=== PATIENT | male | born 1945 | race Caucasian/White ===

== ENCOUNTER → 2024-01-11 09:00 | Outpatient (REF) | payer OTHER, SELFPAY | LOC: DHSLP 09:00 | PROVIDERS: ATTENDING PHYSICIAN Internal Medicine | DX: G47.33 Obstructive sleep apnea (adult) (pediatric) (principal) | CPT/HCPCS: 95800 ==

== ENCOUNTER 2024-09-19 20:33 | Observation (INO) | payer OTHER, SELFPAY ==
[2024-09-19] VITALS (7 sets, daily range): BP systolic 127–162; BP diastolic 62–79; BMI 29.6
[2024-09-19 16:10] LABS: % Basophils 0.4 % (0-2); % Eosinophils 1.3 % (0-6); % Immature Granulocytes 0.3 % (0-0.5); % Lymphocytes 25.2 % (20.5-51.1); % Monocytes 6.7 % (1.7-9.3); % Neutrophils 66.1 % (42.2-75.2); Absolute Eosinophils 0.1 10^3/uL (0-0.7); Absolute Lymphocytes 1.8 10^3/uL (1.2-3.4); Absolute Monocytes 0.5 10^3/uL (0.1-0.6); Absolute Neutrophils 4.7 10^3/uL (1.4-6.5); Hematocrit 45.6 % (39.0-52.0); Hemoglobin 15.6 g/dL (13.0-18.0); Mean Corp Hgb Conc. 34.2 g/dL (33.0-37.0); Mean Corpuscular Hgb 31.7 pg (27.0-31.0); Mean Corpuscular Volume 92.7 fL (80.0-94.0); Mean Platelet Volume 9.5 fL (7.4-10.4); Nucleated Red Blood Cells % 0 % (-); Platelet Count 161 10^3/uL (130-400); Red Blood Cell Count 4.92 10^6/uL (4.70-6.10); Red Cell Dist. Width 12.5 % (11.5-14.5); White Blood Cell Count 7.2 10^3/uL (4.8-10.8)
[2024-09-19 16:28] LABS: ALT (SGPT) 23 U/L (0-50); AST (SGOT) 33 U/L (17-59); Alkaline Phosphatase 93 U/L (38-126); Blood Urea Nitrogen 25 mg/dl (9-20); Calcium 9.3 mg/dl (8.4-10.2); Carbon Dioxide 27 mmol/L (22-30); Chloride 107 mmol/L (98-107); Glucose 101 mg/dl (70-99); Potassium 5.1 mmol/L (3.5-5.1); Sodium 141 mmol/L (135-145); Total Bilirubin 0.9 mg/dl (0.2-1.3); Total Protein 6.9 g/dl (6.3-8.2); eGFR > 60.00
--- NOTE | 2024-09-19 18:58 | ED.GENMED ---
History of Present Illness
General
Chief Complaint: Change in Mental Status
Source: patient and spouse
Exam Limitations: none
Time Seen by Provider: 09/19/24 18:37
History of Present Illness
History of Present Illness:
See MDM
Past History
Past History
ED Past Medical History: Hypercholesterolemia
ED Past Surgical History: Cholecystectomy
Social History
Tobacco: Non-smoker
Alcohol: None
Phy Exam
Physical Exam
Physical Exam:
See MDM
Scores
NIH Stroke Score
Level of Consciousness: 0 - Alert
LOC Questions: 0-Answers both correctly
LOC Commands: 0-Performs both correctly
Best Horizontal Gaze: 0-Normal
Visual Franco: 0=Normal, no visual loss
Facial Palsy: 0=Normal, symmetrical
Motor - Right Arm: 0=No drift 10 seconds
Motor - Left Arm: 0=No drift 10 seconds
Motor - Right Le-No drift 5 seconds
Motor - Left Le-No drift 5 seconds
Limb Ataxia: 0-Absent
Sensation: 0-Normal
Best Language: 0-No aphasia
Dysarthria: 0-Normal
Extinction and Inattention: 0-No abnormality
Total Score:: 0
Course
Orders/Labs/Results
Orders:
Orders
09/19/24 15:[address] [CT Head W/o Iv Contrast] Urgent
Comment:
Reason For Exam: memory issues
09/19/24 16:04
Complete Blood Count/With Diff Urgent
Comprehensive Metabolic Panel Urgent
09/19/24 18:58
Aspirin Chewable [Low Strength Aspirin] 81 mg PO NOW STA
Abnormal Lab Results
09/19/24
16:04
MCH 31.7 H pg
(27.0-31.0)
BUN 25 H mg/dl
(9-20)
Glucose 101 H mg/dl
(70-99)
09/19/24 16:04
09/19/24 16:04
Vital Signs
Initial and Last Documented VS:
Initial Vital Signs
Temp Pulse Resp BP Pulse Ox
97.7 F 67 16 127/78 98
09/19/24 15:52 09/19/24 15:52 09/19/24 15:52 09/19/24 15:52 09/19/24 15:52
Last Documented Vital Signs
Temp Pulse Resp BP Pulse Ox
97.7 F 67 16 127/78 98
09/19/24 15:52 09/19/24 15:52 09/19/24 15:52 09/19/24 15:52 09/19/24 15:52
MDM/Problems Addressed
Differential Diagnosis Includes:
HPI and MDM Narrative:
79-year-old male presenting for evaluation of confusion. His noted that he was confused soon after breakfast. Patient states the last thing he remembers was eating breakfast. He was supposed to go to the store to get ant traps. When his
asked him about the ant traps, he was confused about what she was talking about. She brought him in for evaluation. On exam, he is well-appearing and nontoxic. It appears that there are significant life stressors at home, 1 of which includes
moving out of their home into a nursing facility.
Given that his NIH stroke scale is 0, we discussed the likelihood of transient global amnesia. He is well-appearing and nontoxic. He has no focal deficits. Case discussed with neurology. Will start baby aspirin and admit
Physical exam
General: Well appearing and non-toxic
HEENT: protecting airway
Neck: appears supple
CV: No evidence of cyanosis. Regular rate and rhythm
Resp: No accessory muscle use
Abd: Non-distended
Extremities: No deformities
Neuro: alert. NIH stroke scale 0
Psych: Normal affect
Skin: Intact
Problems Addressed including Acute and Chronic Conditions affecting care:
1. Transient global amnesia
Acuity: acute
Prognosis: stable
Details: Will start aspirin and admit
Differential Diagnosis (but not limited to): Transient global amnesia, TIA
Testing considered: Urinalysis but he denies urinary symptoms
Drug therapy (if applicable): OTC meds, please see d/c instruction regarding Rx drugs
Amount and/or Complexity of Data Reviewed
Clinical info obtained from: Patient
External data reviewed: N/A
Labs I independently reviewed (but not limited to): White blood cell count normal at
Radiology: The CT scan was personally and independently reviewed. In addition, official CT report reviewed.
Pulse Ox: not hypoxic
EKG independently reviewed: N/A
Emd Teacher: N/A
Critical Care: N/A
Risk of Complication:
Social Determinants of health: Good social support
Discussed with other providers: Neurology, hospitalist
Escalation of Care includes Admit/Obs: Given the concern for transient global amnesia, will start aspirin and admit
Occasional wrong word or 'sound a like' substitutions may have occurred due to the inherent limitations of voice recognition software. Read the chart carefully and recognize, using context, where substitutions have occurred.
*Critical Care Note
Total Time (30-74mins, 75-104mins- exclusive of procedures): Not Applicable
ED Attending Note
-
Portions of this chart may have been created with voice recognition software.� Occasional wrong word or��sound alike� substitutions may have occurred due to the inherent limitations of voice recognition software.
Discharge Plan
Departure
Patient Disposition: Admit
Date of Disposition: 09/19/24
Time of Disposition: 19:19
Admit to: Med/Surg
Presentation/result/management discussed w/ accepting MD/DO: Hospitalist
Discharge Problem:
Amnesia, global, transient
Prescriptions:
No Action
simvastatin 10 MG tablet
10 mg PO DAILY
hydrocodone-acetaminophen [[place]] 1 EACH tablet
1 ea PO Q6HPRN PRN (Reason: pain) Qty: 40 0RF
Rx Instructions:
Take 1 tablet four times a day, every 6 hours for pain
lorazepam 1 MG tablet
1 mg PO TIDPRN PRN (Reason: pain/spasms) Qty: 40 0RF
Interventions
Interventions:
*Risk Screen - Suicide Last Done: 09/19/24 15:56
*General Assessment Last Done: 09/19/24 18:35
*Neglect/Abuse Screening Last Done: 09/19/24 15:56
*ED- Fall Risk Assessment Last Done: 09/19/24 18:35
*ED COVID-19 Vaccine History Last Done: 09/19/24 18:35
ED- Neurological Assessment Last Done: 09/19/24 18:35
ED Swallowing Screen Last Done: 09/19/24 19:05
Discharge Date and Time
Print Language: J[place]
[2024-09-19] MEDS: LOW STRENGTH ASPIRIN 81 MG PO (19:13)
--- NOTE | 2024-09-19 19:59 | CON.NEURO ---
Consultation
Order
Date of Consultation: 09/19/24
Requesting Provider:
Reason for Consult: TGA
Neurology Consultation Note.
HPI: This is an 79-year-old man who presented to [facility] on 09/19/2024 with transient memory dysfunction.
Mr. Ocampo reports no recollection of events from approximately 1:30 or 2:00 PM until he found himself in a car en route to the hospital. The patient's last clear memory is from 9:00 AM when he performed his morning routine. He has since regained
memory of his morning activities but still lacks recall for the specific time frame in question. The patient denies any headaches or unusual symptoms in the morning prior to the event.
Mr. Ocampo reports ongoing stress related to moving to a [facility] community and clearing out his house. He mentions having a rash and gastrointestinal issues for the past 2-3 days. The patient's notes that he attended a class at [employer] yesterday at 1:00 PM, which he drove to but does not remember as well. She also reports that he had his cell phone fixed and took items to a thrift store this morning, events which he cannot recall.
ER VS: 127/78, 67, afebrile
EKG: Pending
PDMP:none
Labs: Glucose�101, normal sodium, calcium, WBCs, creatinine
CT head wo contrast�mild atrophy.
PMH: HTN, DLP, hypothyroidism, IBS. LS radiculopathy, vitamin D deficiency
PSH: Lumbar laminectomy, bilateral rotator cuff repair, bilateral cataract surgery, L TKA
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
All: Penicillin
ROS: Constitutional: Negative. Negative for chills, fever and unexpected weight change.
HENT: Negative for ear pain, hearing loss, tinnitus and trouble swallowing.
Eyes: Negative. Negative for photophobia, pain and visual disturbance.
Respiratory: Negative for cough, choking and shortness of breath.
Cardiovascular: Negative for chest pain, palpitations and leg swelling.
Gastrointestinal: Negative for abdominal pain and vomiting.
Endocrine: Negative. Negative for cold intolerance.
Genitourinary: Positive for diarrhea
Musculoskeletal: Negative for back pain, gait problem, neck pain and neck stiffness.
Skin: Positive for rash
Allergic/Immunologic: Negative. Negative for immunocompromised state.
Neurological: Positive for transient memory loss
Psychiatric/Behavioral: Negative for behavioral problems, confusion and hallucinations.
General: Well developed. In no acute distress.
Cardio: Regular rate and rhythm without murmur. Extremities are without cyanosis or edema.
Neuro:
Mental Status: Alert, oriented to person, place, and date. Normal attention and recall. Good fund of knowledge. Follows complex requests across the midline. Comprehension, naming, and repetition intact. Immediate and delayed recall 3/3.
Cranial Nerves: Pupils are equally round, r surgical. EOMs full. Visual aranda full to confrontation. No ptosis. No nystagmus. V1-V3 intact to light touch and pinprick bilaterally, symmetric. Face symmetric. Mildly impaired hearing AU. The
palate elevated well. SCMs and traps 5/5. Tongue midline. No dysarthria.
Motor: Normal bulk and tone. No pronator or arm drift. Strength 5/5 throughout. No clonus.
Reflexes: 1+ throughout the upper extremities and trace knees. Plantar responses flexor bilaterally. Negative press bilaterally
Sensory: Absent vibration at the left toe and reduced at the left ankle
Coordination: No dysmetria or tremor.
Gait: deferred
Assessment and Plan:
I. Probable transient global amnesia
II. History of L2/L3 central spinal canal stenosis/LS radiculopathy, status post remote laminectomy
III. DLP
-Continue Telemetry monitoring
-ASA 81 mg QD
-Please obtain brain MRI without pérez
-Routine EEG
-Please check vitamin B12, TFTs, urine tox
-DVT prophylaxis.
I personally reviewed all radiology and labs along with past medical records pertinent to current medical problems. Total time spent in patient care is 60 minutes.
Thank you for allowing us to participate in the care of this patient. We will continue to follow. Please do not hesitate to contact us with any questions or concerns.
Subjective/Objective
Subjective Data
Date of Service: September 19, 2024
Objective Data
Vital Signs
Temp Pulse Resp BP Pulse Ox
36.5 C 67 16 127/78 98
09/19/24 15:52 09/19/24 15:52 09/19/24 15:52 09/19/24 15:52 09/19/24 15:52
Lab Results
09/19/24 16:04
09/19/24 16:04
Sodium 141 mmol/L (135-145) 09/19/24 16:04
Potassium 5.1 mmol/L (3.5-5.1) 09/19/24 16:04
BUN 25 mg/dl (9-20) H 09/19/24 16:04
Glucose 101 mg/dl (70-99) H 09/19/24 16:04
Calcium 9.3 mg/dl (8.4-10.2) 09/19/24 16:04
Patient Allergies
Cephalosporins Allergy (Verified 06/06/16 08:18)
Pharmacy to Review
penicillin V Allergy (Verified 06/06/16 08:18)
Hives,rash,hot at site
Penicillins Allergy (Verified 06/06/16 08:18)
Hives,rash,hot at site
Medications
-
Home Medications
�Medication �Instructions �Recorded
atorvastatin 20 mg tablet 20 mg PO QPM 09/19/24
cholecalciferol (vitamin D3) 25 25 mcg PO DAILY 09/19/24
mcg (1,000 unit) tablet (Vitamin
D3)
ketoconazole 2 % topical cream 1 applic topical BID right toe 09/19/24
fungus
levothyroxine 50 mcg tablet 50 mcg PO DAILY 09/19/24
loperamide 2 mg capsule (Imodium 2 mg PO Q6HPRN PRN diarrhea 09/19/24
A-D)
Vital Signs and Labs
-
Vital Signs and Labs:
Vital Signs
Temp Pulse Resp BP Pulse Ox
36.5 C 67 16 127/78 98
09/19/24 15:52 09/19/24 15:52 09/19/24 15:52 09/19/24 15:52 09/19/24 15:52
Lab Results
09/19/24 16:04
09/19/24 16:04
Sodium 141 mmol/L (135-145) 09/19/24 16:04
Potassium 5.1 mmol/L (3.5-5.1) 09/19/24 16:04
BUN 25 mg/dl (9-20) H 09/19/24 16:04
Glucose 101 mg/dl (70-99) H 09/19/24 16:04
Calcium 9.3 mg/dl (8.4-10.2) 09/19/24 16:04
Home Medications
-
Home Medications
atorvastatin 20 mg tablet 20 mg PO QPM 09/19/24
cholecalciferol (vitamin D3) 25 mcg (1,000 unit) tablet (Vitamin D3) 25 mcg PO DAILY 09/19/24
ketoconazole 2 % topical cream 1 applic topical BID right toe fungus 09/19/24
levothyroxine 50 mcg tablet 50 mcg PO DAILY 09/19/24
loperamide 2 mg capsule (Imodium A-D) 2 mg PO Q6HPRN PRN diarrhea 09/19/24
--- NOTE | 2024-09-19 20:09 | HPS.HSE ---
Family Physician
-
Family Physician: Ethan Christianson
Chief Complaint
-
Confusion and loss of memory
History of Present Illness
This is a 79-year-old with past medical history significant for hypothyroid, hyperlipidemia, ZEKE on CPAP who presents to the emergency department after developing an acute episode of confusion and memory loss this afternoon at around 1:30 PM.
Patient reports that arousing usual state of health With Usual Activities. Spouse Reported That at around 1:30 PM till 4 PM Patient Appeared Confused. Patient Himself Does Not Remember This Episode. At around 4 PM He Started Remembering What He
Had for Breakfast and Have a Carried down until around 1:30 PM. At This Time He Does Not Remember What Has Occurred between 1:30 PM and 4 PM. He States That since 4 PM He Has Had No Acute Memory Issues and Remembers Everything. He Denies Any Loss
of Prior Memory. Patient Currently Denies Any Weakness, Numbness Tingling. He Denies Any Speech Difficulty. Spouse Did Not See Any Outward Abnormalities Such As Gait Abnormality Dysarthria or Facial Droop. Patient Denies Any Prior History of
Stroke or TIA. Denies Any Prior History of CAD. He Has No Known History of Atrial Fibrillation. He Is Not Currently on Any Antihypertensives.
In the emergency department he was afebrile, blood pressure was normal at 127/78 with a pulse of 67 and oxygen saturation of 98% on room air. CBC was completely normal. Electrolytes BUN/creatinine were also in the normal range creatinine of 1.2
which appears to be his baseline. Telemetry with normal sinus rhythm as well as occasional bradycardia to 57. CT of the head shows no acute interval changes.
Medical History
Past Medical History
Past Medical History: Reports Hypercholesterolemia and Hypothyroidism
Additional Past Medical History:
Obstructive sleep apnea on CPAP
Past Surgical History: Reports Cholecystectomy, Orthopedic (Left total knee arthroplasty, lumbar laminectomy 2015) and Urological (Prostatectomy 2001)
Social History
Tobacco: Non-smoker
Alcohol: None
Drug: None
Personal:
Living: With Family
Employment: Retired
Family History
Family History: Not pertinent
Allergies / Home Medications
Allergies reflects when Allergies were last updated in [employer].
Home Medications with original date entered in [facility]
Allergy/Medication List:
Allergies
Allergy/AdvReac Type Severity Reaction Status Date / Time
Cephalosporins Allergy Pharmacy Verified 06/06/16 08:18
to Review
penicillin V Allergy Hives,rash,hot Verified 06/06/16 08:18
at site
Penicillins Allergy Hives,rash,hot Verified 06/06/16 08:18
at site
Home Medications
atorvastatin 20 mg tablet 20 mg PO QPM 09/19/24
cholecalciferol (vitamin D3) 25 mcg (1,000 unit) tablet (Vitamin D3) 25 mcg PO DAILY 09/19/24
ketoconazole 2 % topical cream 1 applic topical BID right toe fungus 09/19/24
levothyroxine 50 mcg tablet 50 mcg PO DAILY 09/19/24
loperamide 2 mg capsule (Imodium A-D) 2 mg PO Q6HPRN PRN diarrhea 09/19/24
Review of Systems
-
History Source: Patient
Constitutional: Reports No Symptoms
EENT: Reports No Symptoms
Respiratory: Reports No Symptoms
Cardiac: Reports No Symptoms
Abdomen/GI: Reports No Symptoms
: Reports No Symptoms
Musculoskeletal: Reports No Symptoms
Skin: Reports No Symptoms
Neurological: Reports Other (confusion, loss of memory)
Endocrine: Reports No Symptoms
Hematologic/Lymphatic: Reports No Symptoms
Psych: Reports No Symptoms
Physical Exam
Vital Signs
Vital Signs
Temp Pulse Resp BP Pulse Ox
97.7 F 67 16 127/78 98
09/19/24 15:52 09/19/24 15:52 09/19/24 15:52 09/19/24 15:52 09/19/24 15:52
Physical Exam
General: Well Developed, Well Nourished, No Apparent Distress, Comfortable and Conversant
HEENT: NormoCephalic, Anicteric, Moist mucous membranes, Atraumatic and PERRLA
Respiratory: Clear
Cardiac: S1/S2 and Regular Rhythm
Breast: Deferred by me
GI: Soft, Non Tender, Non Distended and Normal Bowel Sounds
Rectal: Deferred by Provider
Genito-urinary: Deferred by me
Musculoskeletal: No Clubbing, No Cyanosis and No Edema
Skin: Warm
Neuro: AO x 3, No Motor Deficits, Cranial Nerves Intact and No Sensory Deficits; No Facial Droop or Tremors
Hematologic/Lymphatic: No Lymphadenopathy
Psych: Calm
Laboratory Results
-
09/19/24 16:04
09/19/24 16:04
Laboratory Results
Total Bilirubin 0.9 mg/dl (0.2-1.3) 09/19/24 16:04
AST 33 U/L (17-59) 09/19/24 16:04
ALT 23 U/L (0-50) 09/19/24 16:04
Alkaline Phosphatase 93 U/L (38-126) 09/19/24 16:04
Data Reviewed
-
CT Scan: Report Reviewed by me
Lab Data: Labs Reviewed by me
Old Records: Reviewed
Impression/Plan
-
IMPRESSION:
Patient is a 79-year-old with past medical history significant for hyperlipidemia and obstructive sleep apnea as well as hypothyroid who presents to the emergency department with episode of confusion that lasted for about 24 hours and is now
completely resolved. It associated with loss of memory involved that intervening 2 hours but no other deficits. He is alert and oriented currently in normal mental status. He is hemodynamically stable. Labs were unremarkable. CT of the head
shows no acute abnormality.
PLAN:
Mental status change�limited anterograde memory deficits that is now resolved is likely the etiology of his brief confusional state. C/W TGA. His labs are all normal. CT of the head is normal.
- admit to telemetry observation
- mri brain in am
- neurochecks q 6 hours
- ecg
- check lipid panel, a1c and esr
- check tsh, b12 and folate
- check u/a
- continue statin for now
- started asa 81 daily
- continue levothyroxine
- CPAP HS
DVT PPX - lovenox sq
code status - Full Code
[2024-09-19 22:04] LABS: TSH Reflex To Free T4 2.15 uIU/ml (0.47-4.68)
--- NOTE | 2024-09-19 22:15 | PTCARENOTE ---
Patient admitted Telemetry level of care with no IV access placed in ED. Upon assessment, patient refused new IV insertion at this time. RN made aware.
[2024-09-19 22:22] LABS: Vitamin B12 275 pg/ml (239-931)
[2024-09-20 00:59] VITALS: PULSE 55
[2024-09-20 02:22] LABS: Amphetamines Negative (Negative); Barbiturates Negative (Negative); Benzodiazepines Negative (Negative); Buprenorphine Negative (Negative); Cocaine Negative (Negative); Marijuana Negative (Negative); Methadone Negative (Negative); Methamphetamines Negative (Negative); Opiates Negative (Negative); Phencyclidine Negative (Negative); Tricyclic Antidepressants Negative (Negative)
[2024-09-20 03:58] VITALS: PULSE 50
[2024-09-20] MEDS: SYNTHROID 50 MCG PO (06:13)
[2024-09-20 06:36] LABS: Hematocrit 42.8 % (39.0-52.0); Hemoglobin 14.7 g/dL (13.0-18.0); Mean Corp Hgb Conc. 34.3 g/dL (33.0-37.0); Mean Corpuscular Hgb 31.6 pg (27.0-31.0); Mean Platelet Volume 9.7 fL (7.4-10.4); Platelet Count 157 10^3/uL (130-400); Red Blood Cell Count 4.65 10^6/uL (4.70-6.10); Red Cell Dist. Width 12.7 % (11.5-14.5); White Blood Cell Count 6.1 10^3/uL (4.8-10.8)
[2024-09-20 07:08] LABS: Blood Urea Nitrogen 22 mg/dl (9-20); Calcium 8.8 mg/dl (8.4-10.2); Carbon Dioxide 26 mmol/L (22-30); Chloride 106 mmol/L (98-107); Estimated Creatinine Clearance 51 ml/min; Glucose 81 mg/dl (70-99); HDL Cholesterol 48 mg/dl; LDL Cholesterol, Calculated 64 mg/dl; Potassium 4.2 mmol/L (3.5-5.1); Sodium 141 mmol/L (135-145); Total Cholesterol 133 mg/dl (50-199); Triglyceride 106 mg/dl (10-149); Very Low Density Lipoprotein 21 mg/dl (0-30); eGFR > 60.00
[2024-09-20 07:30] VITALS: BP 120/66
[2024-09-20] MEDS: LOW STRENGTH ASPIRIN 81 MG PO (08:14)
[2024-09-20] MEDS: VITAMIN D3 (cholecalciferol) 25 MCG PO (08:14)
[2024-09-20 09:48] LABS: Glycohemoglobin (HgbA1c) 5.4 % (4.0-5.6)
[2024-09-20 11:00] VITALS: BP 148/68
--- NOTE | 2024-09-20 11:10 | W.PN.NEURO.1 ---
Today's Communication / Plan
-
.
Subjective/Objective
Subjective Data
Date of Service: September 20, 2024
Neurology follow-up note
Mr. Ocampo reports no complaints. No recurrent episodes of memory loss.
The patient has been normotensive and afebrile.
Brain MRI showed no acute abnormalities.
Vitamin B12�275, TSH�normal, U-Tox�negative.
PMH: HTN, DLP, hypothyroidism, IBS. LS radiculopathy, vitamin D deficiency
PSH: Lumbar laminectomy, bilateral rotator cuff repair, bilateral cataract surgery, L TKA
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
All: Penicillin
ROS: Constitutional: Negative. Negative for chills, fever and unexpected weight change.
HENT: Negative for ear pain, hearing loss, tinnitus and trouble swallowing.
Eyes: Negative. Negative for photophobia, pain and visual disturbance.
Respiratory: Negative for cough, choking and shortness of breath.
Cardiovascular: Negative for chest pain, palpitations and leg swelling.
Gastrointestinal: Negative for abdominal pain and vomiting.
Endocrine: Negative. Negative for cold intolerance.
Genitourinary: Positive for diarrhea
Musculoskeletal: Negative for back pain, gait problem, neck pain and neck stiffness.
Skin: Positive for rash
Allergic/Immunologic: Negative. Negative for immunocompromised state.
Neurological: Positive for transient memory loss
Psychiatric/Behavioral: Negative for behavioral problems, confusion and hallucinations.
General: Well developed. In no acute distress.
Cardio: Regular rate and rhythm without murmur. Extremities are without cyanosis or edema.
Neuro:
Mental Status: Alert, oriented to person, place, and date. Normal attention and recall. Good fund of knowledge. Follows complex requests across the midline. Comprehension, naming, and repetition intact. Immediate and delayed recall 3/3.
Cranial Nerves: Pupils are equally round, r surgical. EOMs full. Visual aranda full to confrontation. No ptosis. No nystagmus. V1-V3 intact to light touch and pinprick bilaterally, symmetric. Face symmetric. Mildly impaired hearing AU. The
palate elevated well. SCMs and traps 5/5. Tongue midline. No dysarthria.
Motor: Normal bulk and tone. No pronator or arm drift. Strength 5/5 throughout. No clonus.
Reflexes: 1+ throughout the upper extremities and trace knees. Plantar responses flexor bilaterally. Negative press bilaterally
Sensory: Absent vibration at the left toe and reduced at the left ankle
Coordination: No dysmetria or tremor.
Gait: deferred
Assessment and Plan:
I. Transient global amnesia. TGA is an uncommon, benign, self-limited, and relatively selective disturbance of anterograde amnesia that occurs in middle-aged and older subjects. While some studies find that migraine and cerebrovascular risk factors
are associated with TGA, the pathogenesis of this disorder remains uncertain. The prognosis after idiopathic TGA is good, with a low risk of recurrence or other subsequent neurologic events. No treatment or driving restriction is required.
II. History of L2/L3 central spinal canal stenosis/LS radiculopathy, status post remote laminectomy.
III. DLP
-Continue Telemetry monitoring
-Routine EEG (can be done as outpatient)
-Outpatient neurology follow-up
I personally reviewed all radiology and labs along with past medical records pertinent to current medical problems. Total time spent in patient care is 35 minutes.
Thank you for allowing us to participate in the care of this patient. Please do not hesitate to contact us with any questions or concerns.
Objective Data
Vital Signs
Temp Pulse Resp BP Pulse Ox
36.7 C 57 20 120/66 97
09/20/24 07:30 09/20/24 07:30 09/20/24 07:30 09/20/24 07:30 09/20/24 07:30
Lab Results
09/20/24 05:26
09/20/24 05:26
Sodium 141 mmol/L (135-145) 09/20/24 05:26
Potassium 4.2 mmol/L (3.5-5.1) 09/20/24 05:26
BUN 22 mg/dl (9-20) H 09/20/24 05:26
Glucose 81 mg/dl (70-99) 09/20/24 05:26
Calcium 8.8 mg/dl (8.4-10.2) 09/20/24 05:26
LDL Cholesterol, Calc 64 mg/dl 09/20/24 05:26
Vitamin B12 275 pg/ml (239-931) 09/19/24 16:04
Ur Buprenorphine Negative (Negative) 09/20/24 01:30
Patient Allergies
Cephalosporins Allergy (Verified 06/06/16 08:18)
Pharmacy to Review
penicillin V Allergy (Verified 06/06/16 08:18)
Hives,rash,hot at site
Penicillins Allergy (Verified 06/06/16 08:18)
Hives,rash,hot at site
Vital Signs and Labs
-
Vital Signs and Labs:
Vital Signs
Temp Pulse Resp BP Pulse Ox
36.7 C 57 20 120/66 97
09/20/24 07:30 09/20/24 07:30 09/20/24 07:30 09/20/24 07:30 09/20/24 07:30
Lab Results
09/20/24 05:26
09/20/24 05:26
Sodium 141 mmol/L (135-145) 09/20/24 05:26
Potassium 4.2 mmol/L (3.5-5.1) 09/20/24 05:26
BUN 22 mg/dl (9-20) H 09/20/24 05:26
Glucose 81 mg/dl (70-99) 09/20/24 05:26
Calcium 8.8 mg/dl (8.4-10.2) 09/20/24 05:26
LDL Cholesterol, Calc 64 mg/dl 09/20/24 05:26
Vitamin B12 275 pg/ml (298-170) 09/19/24 16:04
Ur Buprenorphine Negative (Negative) 09/20/24 01:30
Medications
-
Medications:
Generic Name Dose Route Start Last Admin
Trade Name Freq PRN Reason Stop Dose Admin
Acetaminophen 650 mg 09/19/24 21:42
Acetaminophen 325 Mg Tablet PO 10/17/24 21:41
Q4HPRN PRN
mild pain/WILSON/temp> 100.4F
Aspirin 81 mg 09/20/24 08:00 09/20/24 08:14
Aspirin 81 Mg Chewable Tablet PO 10/18/24 07:59 81 mg
DAILY JARVIS Administration
Atorvastatin Calcium 20 mg 09/20/24 18:00
Atorvastatin (Lipitor) 20 Mg Tablet PO 10/18/24 17:59
QPM JARVIS
Bisacodyl 10 mg 09/19/24 21:42
Bisacodyl 10 Mg Rectal Suppository RECTAL 10/17/24 21:41
[id number] PRN
constipation
Cholecalciferol 25 mcg 09/20/24 08:00 09/20/24 08:14
Cholecalciferol (Vitamin D3) 25 Mcg Tablet (1,000 Units) PO 10/18/24 07:59 25 mcg
DAILY JARVIS Administration
Enoxaparin Sodium 40 mg 09/20/24 18:00
Enoxaparin Sodium 40 Mg/0.4 Ml Syringe SC 10/18/24 17:59
QPM JARVIS
Levothyroxine Sodium 50 mcg 09/20/24 06:00 09/20/24 06:13
Levothyroxine 50 Mcg Tablet PO 10/18/24 05:59 50 mcg
DAILY@0600 JARVIS Administration
Loperamide HCl 2 mg 09/19/24 21:42
Loperamide 2 Mg Capsule PO 10/17/24 21:41
Q6HPRN PRN
diarrhea
Polyethylene Glycol 17 grams 09/19/24 21:42
Polyethylene Glycol Powder 17 Grams Packet PO 10/17/24 21:41
DAILYPRN PRN
constipation
Senna/Docusate Sodium 1 tablet 09/19/24 21:42
Docusate W/Senna (Bianca-Colace) Tablet PO 10/17/24 21:41
BIDPRN PRN
constipation
Sodium Chloride 0 flush 09/19/24 22:00
Sodium Chloride 0.9% (Flush) Syringe IV 10/17/24 21:59
PER PROTOCOL JARVIS
Home Medications
-
Home Medications
atorvastatin 20 mg tablet 20 mg PO QPM 09/19/24
cholecalciferol (vitamin D3) 25 mcg (1,000 unit) tablet (Vitamin D3) 25 mcg PO DAILY 09/19/24
ketoconazole 2 % topical cream 1 applic topical BID right toe fungus 09/19/24
levothyroxine 50 mcg tablet 50 mcg PO DAILY 09/19/24
loperamide 2 mg capsule (Imodium A-D) 2 mg PO Q6HPRN PRN diarrhea 09/19/24
--- NOTE | 2024-09-20 11:21 | W.PN.HOSP.TC ---
Addendum entered and electronically signed by Bradly Mays MD 09/20/24 14:03:
MRI brain unremarkable. Case discussed with Dr. Perez and the pt is medically cleared for d/c.
Total time spent on d/c = 31 min. This included today's physical exam, progress note, review of laboratory and diagnostic data, preparation of discharge documents and prescriptions, and discussions about the pt's hospital course and discharge plan
with the patient and other medical resident involved in the patient's care.
Original Note:
Today's Communication/Plan
-
see bold
Assessment / Plan
Assessment / Plan
79-year-old with past medical history significant for hyperlipidemia and obstructive sleep apnea as well as hypothyroid who presents to the emergency department with episode of confusion that lasted for about 24 hours and is now completely resolved.
It associated with loss of memory involved that intervening 2 hours but no other deficits. He is alert and oriented currently in normal mental status. He is hemodynamically stable. Labs were unremarkable. CT of the head shows no acute
abnormality.
Gen: NAD, AAOx3.
Eyes: EOMI, PERRLA, no scleral icterus.
Neck: supple.
CV: RRR, +S1/S2, no m/r/g.
Resp: CTAB, no rales, wheezes, or rhonchi.
Abd: +BS, soft, NT, ND
Skin: No rashes.
Neuro: CN 2-12 intact, non-focal.
Psych: Normal mood and affect.
Change in mental status:
-Limited anterograde memory deficits that have now resolved which was likely the etiology of his brief confusional state. Presentation consistent with transient global amnesia. His labs are all normal. CT of the head is normal.
-check MRI brain
-Neurochecks
-cont ASA/statin
-neuro following
-TSH/B12 normal
Other problems:
Hypothyroidism: Continue Levoxyl
Hyperlipidemia: Continue statin
FULL/Lovenox
Anticipated Discharge: Today
Subjective/Interval History
-
Date of Service: September 20, 2024
No new complaints.
Objective Data
-
Labs:
Laboratory Results
09/20/24
05:26
WBC 6.1
Hgb 14.7
Hct 42.8
Plt Count 157
Sodium 141
Potassium 4.2
Chloride 106
Carbon Dioxide 26
BUN 22 H
Creatinine 1.1
Glucose 81
Calcium 8.8
Vital Signs:
Vital Signs
Temp Pulse Resp BP Pulse Ox
97.5 F 63 20 148/68 98
09/20/24 11:00 09/20/24 11:00 09/20/24 11:00 09/20/24 11:00 09/20/24 11:00
I&O
09/19/24 09/20/24 09/21/24
06:59 06:59 06:59
Intake Total 240 / 240
Balance 240 / 240
--- NOTE | 2024-09-20 14:16 | W.DCSUMMARY ---
Discharge Summary
Discharge Data
Date of Admission: 09/19/24
Date of Discharge: 09/20/24
-
Pending Results: No
Hospital Course
Primary diagnoses:
Transient global amnesia
Secondary diagnosis:
Hypothyroidism
Hyperlipidemia
Consultants:
Neurology
Imaging:
MRI brain: No focal area of abnormal diffusion-weighted signal, with particular attention to the medial temporal lobes. No evidence for acute intracranial abnormality.
CT brain: No acute intracranial abnormality noted. Mild atrophy.
Hospital course: 79-year-old male who presented with a chief complaint of change in mental status memory loss as outlined in H&P done on admission. The patient's mentation returned to normal. TSH and B12 were normal. The patient had no
electrolyte abnormalities. He was not having memory issues at the time of discharge. Imaging above, MRI brain without acute abnormalities. Patient was seen in consultation by neurology and was cleared for discharge.
Discharge Plan
-
Patient Disposition: Home (Routine Discharge)
Discharge Diagnosis/Procedures: Transient global amnesia
Condition: Good
Diet: Low Cholesterol
Activity: As tolerated
Driving Restrictions: As prior to admission
Referrals:
Ethan Christianson DO [Family Provider] - in less than 1 week
Prescriptions:
Continued
atorvastatin 20 mg Tablet
20 mg PO QPM
loperamide [Imodium A-D] 2 mg Capsule
2 mg PO Q6HPRN PRN (Reason: diarrhea)
levothyroxine 50 mcg Tablet
50 mcg PO DAILY
ketoconazole 2 % Cream
1 applic TOPICAL BID
cholecalciferol (vitamin D3) [Vitamin D3] 25 mcg (1,000 unit) Tablet
25 mcg PO DAILY
Discharge Orders:
Discharge Patient (As Directed); Ordered 09/20/24
Ordered By: Bradly Mays
Discharge Date and Time
Print Language: [place]
[2024-09-20 14:20] VITALS: BP 142/62
--- NOTE | 2024-09-20 14:33 | CM ---
Patient was admitted under OBS, OBS letter signed, Patient lives with spouse in a 2 story home, patient is independent with adl's and ambulation, no dme, patient drives, home today no needs.
PCP: Dr. Kaur
Pharmacy; [facility] in [place]
Plan; Home with spouse today no needs.
== END 2024-09-20 15:10 | disposition home or self-care (01) ==
LOC: 4 WEST ACU 20:33
PROVIDERS: ADMITTING PHYSICIAN Internal Medicine; ATTENDING PHYSICIAN Internal Medicine; CONSULT PHYSICIAN Psychiatry & Neurology Neurology; EMERGENCY PHYSICIAN Student in an Organized Health Care Education/Training Program; FAMILY PHYSICIAN Internal Medicine
DX: G45.4 Transient global amnesia (principal); R41.82 Altered mental status, unspecified; R21 Rash and other nonspecific skin eruption; Z79.82 Long term (current) use of aspirin; E03.9 Hypothyroidism, unspecified
CPT/HCPCS: 70450; 70551; 80048; 80053; 80061; 80306; 82607; 83036; 84443; 85025; 85027; 93005; 94660; 99284; G0378

== ENCOUNTER → 2025-02-03 12:17 | Outpatient (REF) | payer OTHER, SELFPAY | LOC: HWRAD 12:17 | PROVIDERS: ATTENDING PHYSICIAN Physician Assistant; FAMILY PHYSICIAN Internal Medicine | DX: R06.09 Other forms of dyspnea (principal) | CPT/HCPCS: 71046 ==